=== PATIENT | male | born 1995 | race Caucasian/White ===

== ENCOUNTER 2018-08-08 06:21 | Day surgery (SDC) | payer BC ==
[2018-08-07 09:40] VITALS: BMI 24.4
[2018-08-08 07:17] LABS: Anion Gap 13 mmol/L (10-20); BUN (Urea Nitrogen) 15 mg/dL (8.9-20.6); Calc. Creatinine Clearance 134 mL/min (70-130); Calcium 9.8 mg/dL (7.8-10.44); Carbon Dioxide 26 mmol/L (22-29); Chloride 104 mmol/L (98-107); Estimated GFR-MDRD Greater than 90; Glucose 88 mg/dL (70-105); Potassium 3.8 mmol/L (3.5-5.1); Sodium 139 mmol/L (136-145)
[2018-08-08] MEDS ORDERED: Lidocaine 1% PF 5 ML VIAL ONE (07:48)
[2018-08-08] MEDS ORDERED: PROPOFOL 20 ML ONE ×2 (07:48→07:49)
--- NOTE | 2018-08-08 15:46 | OP ---
DATE OF PROCEDURE: 08/08/2018 PROCEDURE PERFORMED: Transesophageal echocardiogram. INDICATIONS FOR PROCEDURE: The patient is a 23-year-old gentleman with an abnormal EKG. DESCRIPTION OF PROCEDURE: The patient was taken to the PACU. The patient was sedated by Anesthesiology. A transesophageal probe was placed into the distal esophagus and stomach. Echocardiographic images were obtained. The transesophageal probe was removed. FINDINGS: 1. Normal left ventricular systolic function. 2. Normal mitral and aortic valves. 3. Trivial mitral regurgitation. 4. Trivial tricuspid regurgitation. 5. Normal right atrial size. 6. Normal right ventricular size. 7. There appeared to be flow from a possible coronary vessel to the proximal aorta suggestive of a shunt or fistula. 8. Contrast bubble exam revealed a PFO. IMPRESSION: Abnormal flow noted possibly from a coronary vessel to the proximal aorta suggestive of a fistula. Recommend further cardiac evaluation including MRI. Job ID: [id number] [facility]
--- NOTE | 2018-08-09 21:21 | EKG ---
Test Reason : PREOP Blood Pressure : / mmHG Vent. Rate : 062 BPM Atrial Rate : 062 BPM P-R Int : 148 ms QRS Dur : 092 ms QT Int : 410 ms P-R-T Axes : 052 096 039 degrees QTc Int : 416 ms Normal sinus rhythm with sinus arrhythmia Rightward axis Borderline ECG No previous ECGs available Confirmed by Maribell DEL TORO ([id number]) on 08/09/2018 9:21:24 PM Referred By: ARTEMIO Confirmed By:Maribell DEL TORO
== END 2018-08-08 09:50 | disposition home or self-care (01) ==
LOC: CCL 06:21
PROVIDERS: ATTEND Internal Medicine Cardiovascular Disease
PROC: B245ZZ4 Ultrasonography of Left Heart, Transesophageal (ICD-10-PCS; principal; 2018-08-08)
DX: I08.1 Rheumatic disorders of both mitral and tricuspid valves (principal); Q21.1 Atrial septal defect
CPT/HCPCS: 36415; 80048; 93005; 93010; 93312; J2001; J2704